=== PATIENT | male | born 1970 | race Caucasian/White ===

== ENCOUNTER 2018-07-20 01:24 | Emergency (ER) | payer SELFPAY ==
[~2018-07-20] VITALS: Ht 170.2 cm; Wt 104.3 kg
--- OUTSIDE RECORDS SUMMARY | 2018-07-20 01:32 | XMS REPORT ---
Author Author JUDY SHARPE Organization [facility] Address [address] [place] [address] Care Team Providers Care Logistics Loss Prevention Manager Name Role Phone JUDY SHARPE Unavailable PROBLEMS Type Condition ICD9-CM Code [id number] Code Onset Dates Condition Status SNOMED Code Problem Anxiety F41.9 Active 50597640 Problem Hypertriglyceridemia E78.1 Active 617057552 Problem Attention deficit hyperactivity disorder (ADHD), predominantly inattentive type F90.0 Active 72203739 Problem Gastroesophageal reflux disease without esophagitis K21.9 Active 706415760 ALLERGIES No Information ENCOUNTERS Encounter Location Date Diagnosis [place] [address] [address] May, Hypertriglyceridemia E78.1 [facility] [address] [place] [id number] [place] [address] 32512- 7992 Apr, Hypertriglyceridemia E78.1 [place] [address] [place] [id number] [place] [address] 97111- 2173 15 Mar, 2018 Hemangioma D18.00 [place] [address] [place] [id number] [place] [address] 99317- 9225 March, [facility] [address] [place] [address] [id number] [place] [address] 55711- 9212 March, Hypertriglyceridemia E78.1 [facility] [address] [place] [address] [id number] [place] [address] 95012- 6973 16 Feb, 2018 Insect bite (nonvenomous) of abdominal wall, initial encounter S30.861A and Hypertriglyceridemia E78.1 [facility] [address] [place] [address] 33887- 3703 Jan, Attention deficit hyperactivity disorder (ADHD), predominantly inattentive type F90.0 ; Anxiety F41.9 and Lipoma of breast D17.1 [facility] [address] [place] [id number] [place] [address] 19582 -6635 Jan, Encounter for immunization Z23 ; Superficial laceration of face S01.81XA and Injury of head, initial encounter S09.90XA [facility] [address] [address]- [address] Jan, Hypertriglyceridemia E78.1 [facility] [address] 98[address]- 2925 Dec, Hypertriglyceridemia E78.1 [place] [address] 55[address]- 2297 Dec, Hypertriglyceridemia E78.1 [facility] [address] 67[address]- 7[address] Nov, Hypertriglyceridemia E78.1 [facility] [address] 85[address]- 2735 Oct, Hypertriglyceridemia E78.1 [place] [address] 93[address]- 0430 Sep, Hypertriglyceridemia E78.1 [facility] [address] [place] [id number] [place] [address] 13972- 2196 Aug, Hypertriglyceridemia E78.1 and Elevated liver enzymes R74.8 [facility] [address] 26[address]- 8310 Aug, Attention deficit hyperactivity disorder (ADHD), predominantly inattentive type F90.0 [facility] [address] [place] [id number] [place] [address] 96690- 0674 Jul, [facility] [address] 07841- 9444 07 Jul, 2017 Insect bite (nonvenomous) of abdominal wall, initial encounter S30.861A ; Other fatigue R53.83 ; Other malaise R53.81 ; Family history of early CAD Z82.49 ; Gastroesophageal reflux disease without esophagitis K21.9 and Attention deficit hyperactivity disorder (ADHD), predominantly inattentive type F90.0 [facility] [address] [facility] [id number] [place] [id number] Jun, [facility] [address] [facility] [id number] [address] Nov, IMMUNIZATIONS No Known Immunizations SOCIAL HISTORY Never Assessed REASON FOR VISIT Controlled Med Refill PLAN OF CARE VITAL SIGNS MEDICATIONS Medication Instructions Dosage Frequency Start Date End Date Duration Status Adderall XR 30 MG Orally 2 times a day 1 capsule 12h 19 Jan, 2018 28 days Active Omeprazole 20 mg Orally Once a day 1 capsule 24h 30 days Active RESULTS No Results PROCEDURES No Known procedures INSTRUCTIONS MEDICATIONS ADMINISTERED No Known Medications MEDICAL (GENERAL) HISTORY Type Description Date Medical History Anxiety disorder Medical History ADHD Surgical History hernia repair, x2 abdominal and inquinal Surgical History skin graft on Left finger
--- OUTSIDE RECORDS SUMMARY | 2018-07-20 01:32 | XMS REPORT ---
Author Author JUAN ALBERTO ARRIOLA Organization [facility] Address [address] [place] [address] Care Team Providers Care Production Sanitizer Name Role Phone JUAN ALBERTO ARRIOLA Unavailable PROBLEMS Type Condition ICD9-CM Code [id number] Code Onset Dates Condition Status SNOMED Code Problem Anxiety F41.9 Active 41946632 Problem Hypertriglyceridemia E78.1 Active 959860629 Problem Attention deficit hyperactivity disorder (ADHD), predominantly inattentive type F90.0 Active 31424454 Problem Gastroesophageal reflux disease without esophagitis K21.9 Active 981560038 ALLERGIES No Information ENCOUNTERS Encounter Location Date Diagnosis [place] [address] [address] May, Hypertriglyceridemia E78.1 [place] [address] [address]- 3660 Apr, Hypertriglyceridemia E78.1 [place] [address] 77156- 7105 March, Hemangioma D18.00 [place] [address] 39946- 0595 March, [place] [address] 15829- 6291 March, Hypertriglyceridemia E78.1 [place] [address] 67146- 4590 16 Feb, 2018 Insect bite (nonvenomous) of abdominal wall, initial encounter S30.861A and Hypertriglyceridemia E78.1 [place] [address] [place] [id number] [place] [address] 43742- 6176 Jan, Attention deficit hyperactivity disorder (ADHD), predominantly inattentive type F90.0 ; Anxiety F41.9 and Lipoma of breast D17.1 [facility] [address] [place] [id number] [place] [address] 27749 -9446 Jan, Encounter for immunization Z23 ; Superficial laceration of face S01.81XA and Injury of head, initial encounter S09.90XA [facility] [address] 32691- 6133 Jan, Hypertriglyceridemia E78.1 [facility] [address] 41709- 1462 Dec, Hypertriglyceridemia E78.1 [place] [address] 03956- 2744 Dec, Hypertriglyceridemia E78.1 [facility] [address] [address]- 1849 Nov, Hypertriglyceridemia E78.1 [place] [address] 27221- 4635 Oct, Hypertriglyceridemia E78.1 [place] [address] 34424- 8113 Sep, Hypertriglyceridemia E78.1 [facility] [address] 28435- 7903 Aug, Hypertriglyceridemia E78.1 and Elevated liver enzymes R74.8 [place] [address] 52084- 8148 Aug, Attention deficit hyperactivity disorder (ADHD), predominantly inattentive type F90.0 [place] [address] 44725- 37[address] Jul, [place] [address] 44139- 98[address] 07 Jul, 2017 Insect bite (nonvenomous) of abdominal wall, initial encounter S30.861A ; Other fatigue R53.83 ; Other malaise R53.81 ; Family history of early CAD Z82.49 ; Gastroesophageal reflux disease without esophagitis K21.9 and Attention deficit hyperactivity disorder (ADHD), predominantly inattentive type F90.0 [facility] [address] [facility] [id number] [place] [address] Jun, [facility] [address] [facility] [id number] [place] [address]- 4046 Nov, IMMUNIZATIONS No Known Immunizations SOCIAL HISTORY Never Assessed REASON FOR VISIT Controlled Med Refill PLAN OF CARE VITAL SIGNS MEDICATIONS Medication Instructions Dosage Frequency Start Date End Date Duration Status Adderall XR 30 MG Orally 2 times a day 1 capsule 12h 16 Feb, 2018 28 days Active Omeprazole 20 mg Orally Once a day 1 capsule 24h 07 Jul, 2017 30 day(s ) Active RESULTS No Results PROCEDURES No Known procedures INSTRUCTIONS MEDICATIONS ADMINISTERED No Known Medications MEDICAL (GENERAL) HISTORY Type Description Date Medical History Anxiety disorder Medical History ADHD Surgical History hernia repair, x2 abdominal and inquinal Surgical History skin graft on Left finger
--- OUTSIDE RECORDS SUMMARY | 2018-07-20 01:32 | XMS REPORT ---
Author Author JUAN ALBERTO ARRIOLA Organization [facility] Address [address] [place] [address] Care Team Providers Care Zoo Keeper Name Role Phone JUAN ALBERTO ARRIOLA Unavailable PROBLEMS Type Condition ICD9-CM Code DPP76-SI Code Onset Dates Condition Status SNOMED Code Problem Anxiety F41.9 Active 07323533 Problem Hypertriglyceridemia E78.1 Active 786988388 Problem Attention deficit hyperactivity disorder (ADHD), predominantly inattentive type F90.0 Active 12309197 Problem Gastroesophageal reflux disease without esophagitis K21.9 Active 984877770 ALLERGIES No Known Allergies ENCOUNTERS Encounter Location Date Diagnosis [place] [address] [address] May, Hypertriglyceridemia E78.1 [place] [address] [place] [id number] [place] [address] 34977- 0176 Apr, Hypertriglyceridemia E78.1 [place] [address] [place] [id number] [place] [address] 08534- 9513 March, Hemangioma D18.00 [place] [address] [place] [id number] [place] [address] 05361- 1818 March, [place] [address] [place] [id number] [place] [address] 02550- 6319 March, Hypertriglyceridemia E78.1 [place] [address] [place] [id number] [place] [address] 74065- 8299 Feb, Insect bite (nonvenomous) of abdominal wall, initial encounter S30.861A and Hypertriglyceridemia E78.1 [facility] [address] [place] [id number] [place] [address] 46544- 3574 Jan, Attention deficit hyperactivity disorder (ADHD), predominantly inattentive type F90.0 ; Anxiety F41.9 and Lipoma of breast D17.1 [facility] [address] [place] [id number] [place] [address] 29470 -3713 Jan, Encounter for immunization Z23 ; Superficial laceration of face S01.81XA and Injury of head, initial encounter S09.90XA [facility] [address] [address]- 92[address] Jan, Hypertriglyceridemia E78.1 [facility] [address] 26928- 6158 Dec, Hypertriglyceridemia E78.1 [place] [address] 59840- 0493 Dec, Hypertriglyceridemia E78.1 [facility] [address] 59255- 7633 Nov, Hypertriglyceridemia E78.1 [facility] [address] 44386- 8499 Oct, Hypertriglyceridemia E78.1 [place] [address] 51249- 0980 Sep, Hypertriglyceridemia E78.1 [facility] [address] [address]08- 7314 Aug, Hypertriglyceridemia E78.1 and Elevated liver enzymes R74.8 [place] [address] 52159- 4742 Aug, Attention deficit hyperactivity disorder (ADHD), predominantly inattentive type F90.0 [place] [address] 12004- 7019 Jul, [place] [address] 59414- 0261 07 Jul, 2017 Insect bite (nonvenomous) of abdominal wall, initial encounter S30.861A ; Other fatigue R53.83 ; Other malaise R53.81 ; Family history of early CAD Z82.49 ; Gastroesophageal reflux disease without esophagitis K21.9 and Attention deficit hyperactivity disorder (ADHD), predominantly inattentive type F90.0 [facility] [address] [facility] [id number] [place] [address]- [address] Jun, [facility] [address] [facility] [id number] [place] [address]- 7827 Nov, IMMUNIZATIONS No Known Immunizations SOCIAL HISTORY Never Assessed REASON FOR VISIT [facility] [place], contract and PDM collected PLAN OF CARE Activity Details Follow Up 4 Weeks Reason:mood disorder VITAL SIGNS Height 67 in 2018-02-16 Weight 258 lbs 2018-02-16 Temperature 97.7 degrees Fahrenheit 2018-02-16 Heart Rate 78 bpm 2018-02-16 Respiratory Rate 20 2018-02-16 BMI 40.40 kg/m2 2018-02-16 Blood pressure systolic 152 mmHg 2018-02-16 Blood pressure diastolic 84 mmHg 2018-02-16 MEDICATIONS Medication Instructions Dosage Frequency Start Date End Date Duration Status Adderall XR 30 MG Orally 2 times a day 1 capsule 12h 19 Jan, 2018 28 days Active Omeprazole 20 mg Orally Once a day 1 capsule 24h 07 Jul, 2017 30 day(s ) Active Wellbutrin SR 150 MG Orally Twice a day 1 tablet 12h Jan, 30 day(s) Active RESULTS No Results PROCEDURES Procedure Date Ordered Result Body Site DRUG SCREEN AMPHETAMINES 11/21February 16, 2018 DRUG TEST PRSMV CHEM ANLYZR February 16, 2018 INSTRUCTIONS MEDICATIONS ADMINISTERED No Known Medications MEDICAL (GENERAL) HISTORY Type Description Date Medical History Anxiety disorder Medical History ADHD Surgical History hernia repair, x2 abdominal and inquinal Surgical History skin graft on Left finger
--- OUTSIDE RECORDS SUMMARY | 2018-07-20 01:32 | XMS REPORT ---
Author Author JUAN ALBERTO ARRIOLA Organization [facility] Address [address] [place] [address] Care Team Providers Care Condenser Cleaner Name Role Phone JUAN ALBERTO ARRIOLA Unavailable PROBLEMS Type Condition ICD9-CM Code [id number] Code Onset Dates Condition Status SNOMED Code Problem Anxiety F41.9 Active 78394922 Problem Hypertriglyceridemia E78.1 Active 614799817 Problem Attention deficit hyperactivity disorder (ADHD), predominantly inattentive type F90.0 Active 25082821 Problem Gastroesophageal reflux disease without esophagitis K21.9 Active 785466113 ALLERGIES No Information ENCOUNTERS Encounter Location Date Diagnosis [place] [address] [place] [id number] [place] [address] 17546- 8568 Jun, [facility] [address] [address]- [address] Jun, Hypertriglyceridemia E78.1 and Insect bite (nonvenomous) of abdominal wall, initial encounter S30.861A [place] [address] [place] [id number] [place] [address] 46864- 0637 May, Hypertriglyceridemia E78.1 [place] [address] [place] [id number] [place] [address] 87528- 6805 Apr, Hypertriglyceridemia E78.1 [facility] [address] [place] [id number] [place] [address] 80707- 2729 March, Hemangioma D18.00 [place] [address] 93209- 7523 March, [facility] [address] [place] [id number] [place] [address] 08445- 4541 March, Hypertriglyceridemia E78.1 [facility] [address] [place] [id number] [place] [address] 94892- 4981 Feb, Insect bite (nonvenomous) of abdominal wall, initial encounter S30.861A and Hypertriglyceridemia E78.1 [facility] [address] [place] [id number] [place] [address] 07045- 7339 Jan, Attention deficit hyperactivity disorder (ADHD), predominantly inattentive type F90.0 ; Anxiety F41.9 and Lipoma of breast D17.1 [facility] [address] [place] [id number] [place] [address] 42038 -9016 Jan, Encounter for immunization Z23 ; Superficial laceration of face S01.81XA and Injury of head, initial encounter S09.90XA [facility] [address] [place] [id number] [place] [address] 92545- 5463 Jan, Hypertriglyceridemia E78.1 [facility] [address] [place] [id number] [place] [address] 92325- 5668 Dec, Hypertriglyceridemia E78.1 [facility] [address] [place] [id number] [place] [address] 44102- 4573 Dec, Hypertriglyceridemia E78.1 [facility] [address] 10263- 3873 Nov, Hypertriglyceridemia E78.1 [facility] [address] [place] [id number] [place] [address] 31446- 4378 Oct, Hypertriglyceridemia E78.1 [facility] [address] 36719- 7419 Sep, Hypertriglyceridemia E78.1 [facility] [address] [place] [id number] [place] [address] 81139- 5721 Aug, Hypertriglyceridemia E78.1 and Elevated liver enzymes R74.8 [facility] [address] [place] [id number] [place] [address] 42073- 2865 04 Aug, 2017 Attention deficit hyperactivity disorder (ADHD), predominantly inattentive type F90.0 [place] [address] [place] [address]- 8556 Jul, [place] [address] [place] [id number] [place] [address] 93145- 1569 Jul, Insect bite (nonvenomous) of abdominal wall, initial encounter S30.861A ; Other fatigue R53.83 ; Other malaise R53.81 ; Family history of early CAD Z82.49 ; Gastroesophageal reflux disease without esophagitis K21.9 and Attention deficit hyperactivity disorder (ADHD), predominantly inattentive type F90.0 [place] [address] [place] [address] 96208- 7239 Jun, [place] [address] [place] [address] [id number]- 3599 Nov, IMMUNIZATIONS No Known Immunizations SOCIAL HISTORY Never Assessed REASON FOR VISIT Controlled Med Refill PLAN OF CARE VITAL SIGNS MEDICATIONS Medication Instructions Dosage Frequency Start Date End Date Duration Status Adderall XR 30 MG Orally 2 times a day 1 capsule 12h Apr, 28 days Active RESULTS No Results PROCEDURES No Known procedures INSTRUCTIONS MEDICATIONS ADMINISTERED No Known Medications MEDICAL (GENERAL) HISTORY Type Description Date Medical History Anxiety disorder Medical History ADHD Surgical History hernia repair, x2 abdominal and inquinal Surgical History skin graft on Left finger
--- OUTSIDE RECORDS SUMMARY | 2018-07-20 01:32 | XMS REPORT ---
Author Author JUAN ALBERTO ARRIOLA Organization [facility] Address [address] [place] [address] Care Team Providers Care Partnership Development Manager Name Role Phone JUAN ALBERTO ARRIOLA Unavailable PROBLEMS Type Condition ICD9-CM Code [id number] Code Onset Dates Condition Status SNOMED Code Problem Anxiety F41.9 Active 80467283 Problem Hypertriglyceridemia E78.1 Active 913401565 Problem Attention deficit hyperactivity disorder (ADHD), predominantly inattentive type F90.0 Active 02279190 Problem Gastroesophageal reflux disease without esophagitis K21.9 Active 970609315 ALLERGIES No Known Allergies ENCOUNTERS Encounter Location Date Diagnosis [place] [address] [place] [id number] [place] [address] 35529- 1739 Jun, [facility] [address] [place] [id number] [place] [address] 21636- 9987 Jun, Hypertriglyceridemia E78.1 and Insect bite (nonvenomous) of abdominal wall, initial encounter S30.861A [place] [address] [place] [id number] [place] [address] 66451- 5168 May, Hypertriglyceridemia E78.1 [place] [address] [place] [id number] [place] [address] 41646- 0096 Apr, Hypertriglyceridemia E78.1 [place] [address] [place] [id number] [place] [address] 98539- 4658 March, Hemangioma D18.00 [place] [address] 38[address]- 38[address] March, [place] [address] [place] [id number] [place] [address] 25623- 4838 March, Hypertriglyceridemia E78.1 [place] [address] [place] [id number] [place] [address] 27291- 2203 Feb, Insect bite (nonvenomous) of abdominal wall, initial encounter S30.861A and Hypertriglyceridemia E78.1 [facility] [address] [place] [id number] [place] [address] 65671- 5096 Jan, Attention deficit hyperactivity disorder (ADHD), predominantly inattentive type F90.0 ; Anxiety F41.9 and Lipoma of breast D17.1 [facility] [address] [address] -[address] Jan, Encounter for immunization Z23 ; Superficial laceration of face S01.81XA and Injury of head, initial encounter S09.90XA [facility] [address] [place] [id number] [place] [address] 79435- 4145 Jan, Hypertriglyceridemia E78.1 [facility] [address] [place] [id number] [place] [address] 81297- 4656 Dec, Hypertriglyceridemia E78.1 [facility] [address] [place] [id number] [place] [address] 89808- 6267 Dec, Hypertriglyceridemia E78.1 [facility] [address] 95123- 9941 Nov, Hypertriglyceridemia E78.1 [facility] [address] [place] [id number] [place] [address] 34961- 2755 Oct, Hypertriglyceridemia E78.1 [facility] [address] [place] [id number] [place] [address] 81538- 0267 Sep, Hypertriglyceridemia E78.1 [facility] [address] [place] [id number] [place] [address] 55962- 9828 Aug, Hypertriglyceridemia E78.1 and Elevated liver enzymes R74.8 [facility] [address] [place] [id number] [place] [address] 75013- 1314 04 Aug, 2017 Attention deficit hyperactivity disorder (ADHD), predominantly inattentive type F90.0 [place] [address] [place] [address] 12 Jul, 2017 [facility] [address] [id number] [address]- 8966 07 Jul, 2017 Insect bite (nonvenomous) of abdominal wall, initial encounter S30.861A ; Other fatigue R53.83 ; Other malaise R53.81 ; Family history of early CAD Z82.49 ; Gastroesophageal reflux disease without esophagitis K21.9 and Attention deficit hyperactivity disorder (ADHD), predominantly inattentive type F90.0 [place] [address] [id number] [address]- 0700 Jun, [place] [address] [place] [address] 41309- 9782 Nov, IMMUNIZATIONS No Known Immunizations SOCIAL HISTORY Never Assessed REASON FOR VISIT Lipoma removal WB-MA PLAN OF CARE Activity Details Follow Up 10 days, Reason:suture removal Future/Pending Procedure BIOPSY SKIN LESION (SINGLE) VITAL SIGNS Height 67 in 2018-04-03 Weight 249 lbs 2018-04-03 Temperature 98.2 degrees Fahrenheit 2018-04-03 Heart Rate 96 bpm 2018-04-03 Respiratory Rate 20 2018-04-03 BMI 38.99 kg/m2 2018-04-03 Blood pressure systolic 126 mmHg 2018-04-03 Blood pressure diastolic 84 mmHg 2018-04-03 MEDICATIONS Medication Instructions Dosage Frequency Start Date End Date Duration Status Adderall XR 30 MG Orally 2 times a day 1 capsule 12h March, 28 days Active Wellbutrin SR 150 MG Orally Twice a day 1 tablet 12h 30 Jan, 2018 30 day(s) Active Omeprazole 20 mg Orally Once a day 1 capsule 24h 07 Jul, 2017 30 day(s ) Active RESULTS Name Result Date Reference Range PATHOLOGY REPORT (TISSUE PATHOLOGY) 2018-04-03 CLINICAL INFORMATION PATHOLOGIST TISSUE, SPECIMEN A 2018-04-03 A SOURCE A GROSS DESCRIPTION A DIAGNOSIS PROCEDURES Procedure Date Ordered Result Body Site BIOPSY OF SKIN LESION April 03, 2018 INSTRUCTIONS MEDICATIONS ADMINISTERED No Known Medications MEDICAL (GENERAL) HISTORY Type Description Date Medical History Anxiety disorder Medical History ADHD Surgical History hernia repair, x2 abdominal and inquinal Surgical History skin graft on Left finger
--- OUTSIDE RECORDS SUMMARY | 2018-07-20 01:32 | XMS REPORT ---
Author Author JUAN ALBERTO ARRIOLA Organization [facility] Address [address] [place] [address] Care Team Providers Care Form Tamper Operator Name Role Phone JUAN ALBERTO ARRIOLA Unavailable PROBLEMS Type Condition ICD9-CM Code [id number] Code Onset Dates Condition Status SNOMED Code Problem Anxiety F41.9 Active 49663233 Problem Hypertriglyceridemia E78.1 Active 941694399 Problem Attention deficit hyperactivity disorder (ADHD), predominantly inattentive type F90.0 Active 19477854 Problem Gastroesophageal reflux disease without esophagitis K21.9 Active 562234668 ALLERGIES No Information ENCOUNTERS Encounter Location Date Diagnosis [place] [address] [address] Apr, Hypertriglyceridemia E78.1 [facility] [address] [address] 15 Mar, 2018 Hemangioma D18.00 [facility] [address] [address] March, [facility] [address] [place] [id number] [place] [address] 4[address] March, Hypertriglyceridemia E78.1 [facility] [address] [address] Feb, Insect bite (nonvenomous) of abdominal wall, initial encounter S30.861A and Hypertriglyceridemia E78.1 [facility] [address] [address] Jan, Attention deficit hyperactivity disorder (ADHD), predominantly inattentive type F90.0 ; Anxiety F41.9 and Lipoma of breast D17.1 [facility] [address] [address] Jan, Encounter for immunization Z23 ; Superficial laceration of face S01.81XA and Injury of head, initial encounter S09.90XA [place] [address] [address] Jan, Hypertriglyceridemia E78.1 [place] [address] [address] Dec, Hypertriglyceridemia E78.1 [place] [address] [address] Dec, Hypertriglyceridemia E78.1 [place] [address] [address] Nov, Hypertriglyceridemia E78.1 [place] [address] [address] 4[address] Oct, Hypertriglyceridemia E78.1 [place] [address] [address] 8[address] Sep, Hypertriglyceridemia E78.1 [place] [address] [address] 6[address] Aug, Hypertriglyceridemia E78.1 and Elevated liver enzymes R74.[address] [address] 04 Aug, 2017 Attention deficit hyperactivity disorder (ADHD), predominantly inattentive type F90.0 [place] [address] [address] 12 Jul, 2017 [place] [address] [address] 07 Jul, 2017 Insect bite (nonvenomous) of abdominal wall, initial encounter S30.861A ; Other fatigue R53.83 ; Other malaise R53.81 ; Family history of early CAD Z82.49 ; Gastroesophageal reflux disease without esophagitis K21.9 and Attention deficit hyperactivity disorder (ADHD), predominantly inattentive type F90.0 [place] [address] [facility] [id number] [place] [address] Jun, [facility] [address] [facility] [id number] [address] Nov, IMMUNIZATIONS No Known Immunizations SOCIAL HISTORY Never Assessed REASON FOR VISIT Controlled Med Refill 01/08/18 PLAN OF CARE VITAL SIGNS MEDICATIONS Medication Instructions Dosage Frequency Start Date End Date Duration Status Adderall XR 30 MG Orally 2 times a day 1 capsule 12h Dec, 28 days Active RESULTS No Results PROCEDURES No Known procedures INSTRUCTIONS MEDICATIONS ADMINISTERED No Known Medications MEDICAL (GENERAL) HISTORY Type Description Date Medical History Anxiety disorder Medical History ADHD Surgical History hernia repair, x2 abdominal and inquinal Surgical History skin graft on Left finger
--- OUTSIDE RECORDS SUMMARY | 2018-07-20 01:32 | XMS REPORT ---
Author Author ABDIAS WATSON [facility] Address [address] [place] [address] Care Team Providers Care Feller Buncher Operator Name Role Phone ABDIAS WATSON Unavailable PROBLEMS Type Condition ICD9-CM Code HYK36-DZ Code Onset Dates Condition Status SNOMED Code Problem Anxiety F41.9 Active 01359912 Problem Hypertriglyceridemia E78.1 Active 823716145 Problem Attention deficit hyperactivity disorder (ADHD), predominantly inattentive type F90.0 Active 63462800 Problem Gastroesophageal reflux disease without esophagitis K21.9 Active 893629646 ALLERGIES No Known Allergies ENCOUNTERS Encounter Location Date Diagnosis [place] [address] [address] May, Hypertriglyceridemia E78.1 [place] [address] [place] [id number] [place] [address] Apr, Hypertriglyceridemia E78.1 [place] [address] [place] [id number] [place] [address]- [address] 15 Mar, 2018 Hemangioma D18.00 [place] [address] [place] [id number] [place] [address]- 6[address] March, [place] [address] [place] [id number] [place] [address] 92296- 9226 March, Hypertriglyceridemia E78.1 [place] [address] [address] 16 Feb, 2018 Insect bite (nonvenomous) of abdominal wall, initial encounter S30.861A and Hypertriglyceridemia E78.1 [place] [address] [place] [id number] [place] [address]- 29[address] Jan, Attention deficit hyperactivity disorder (ADHD), predominantly inattentive type F90.0 ; Anxiety F41.9 and Lipoma of breast D17.1 [facility] [address] [address] Jan, Encounter for immunization Z23 ; Superficial laceration of face S01.81XA and Injury of head, initial encounter S09.90XA [facility] [address] [address] Jan, Hypertriglyceridemia E78.1 [facility] [address] [address]- [address] Dec, Hypertriglyceridemia E78.1 [facility] [address] [address]- 80[address] Dec, Hypertriglyceridemia E78.1 [facility] [address] [address]- 3[address] Nov, Hypertriglyceridemia E78.1 [facility] [address] [address] Oct, Hypertriglyceridemia E78.1 [facility] [address] [address]- 7[address] Sep, Hypertriglyceridemia E78.1 [facility] [address] [address] Aug, Hypertriglyceridemia E78.1 and Elevated liver enzymes R74.8 [facility] [address] [address] Aug, Attention deficit hyperactivity disorder (ADHD), predominantly inattentive type F90.0 [facility] [address] [address]- [address] Jul, [facility] [address] [address]- [address] 07 Jul, 2017 Insect bite (nonvenomous) of abdominal wall, initial encounter S30.861A ; Other fatigue R53.83 ; Other malaise R53.81 ; Family history of early CAD Z82.49 ; Gastroesophageal reflux disease without esophagitis K21.9 and Attention deficit hyperactivity disorder (ADHD), predominantly inattentive type F90.0 [facility] [address] [facility] [id number] [place] [address] Jun, [facility] [address] [facility] [id number] [place] [address] Nov, IMMUNIZATIONS Vaccine Route Administration Date Status TDAP (BOOSTRIX) IM Intramuscular February 07, 2018 Administered SOCIAL HISTORY Never Assessed REASON FOR VISIT cut on forehead by 2x4 about 15 minutes ago JStrasserRN PLAN OF CARE Activity Details Follow Up prn Reason: VITAL SIGNS Height 67 in 2018-02-07 Weight 250.2 lbs 2018-02-07 Temperature 97.4 degrees Fahrenheit 2018-02-07 Heart Rate 80 bpm 2018-02-07 Respiratory Rate 20 2018-02-07 BMI 39.18 kg/m2 2018-02-07 Blood pressure systolic 138 mmHg 2018-02-07 Blood pressure diastolic 90 mmHg 2018-02-07 MEDICATIONS Medication Instructions Dosage Frequency Start Date End Date Duration Status Adderall XR 30 MG Orally 2 times a day 1 capsule 12h Jan, 28 days Active Omeprazole 20 mg Orally Once a day 1 capsule 24h 30 days Active Omeprazole 20 mg Orally Once a day 1 capsule 24h 07 Jul, 2017 30 day(s ) Active RESULTS No Results PROCEDURES Procedure Date Ordered Result Body Site TDAP (BOOSTRIX) February 07, 2018 SINGLE IMMUNIZATION ADMIN February 07, 2018 INSTRUCTIONS MEDICATIONS ADMINISTERED No Known Medications MEDICAL (GENERAL) HISTORY Type Description Date Medical History Anxiety disorder Medical History ADHD Surgical History hernia repair, x2 abdominal and inquinal Surgical History skin graft on Left finger
--- OUTSIDE RECORDS SUMMARY | 2018-07-20 01:32 | XMS REPORT ---
Author Author JUAN ALBERTO ARRIOLA Organization [facility] Address [address] [place] [address] Care Team Providers Care Multiple Drum Sander Helper Name Role Phone JUAN ALBERTO ARRIOLA Unavailable PROBLEMS Type Condition ICD9-CM Code EQZ43-TF Code Onset Dates Condition Status SNOMED Code Problem Anxiety F41.9 Active 36203060 Problem Hypertriglyceridemia E78.1 Active 709303662 Problem Attention deficit hyperactivity disorder (ADHD), predominantly inattentive type F90.0 Active 57400568 Problem Gastroesophageal reflux disease without esophagitis K21.9 Active 131301717 ALLERGIES No Information ENCOUNTERS Encounter Location Date Diagnosis [place] [address] [place] [id number] [place] [address] Jun, [facility] [address] [address] Jun, Hypertriglyceridemia E78.1 and Insect bite (nonvenomous) of abdominal wall, initial encounter S30.861A [place] [address] [place] [id number] [place] [address]- 9757 May, Hypertriglyceridemia E78.1 [place] [address] [place] [id number] [place] [address]- 68[address] Apr, Hypertriglyceridemia E78.1 [facility] [address] [place] [id number] [place] [address] 11244- 2256 March, Hemangioma D18.00 [place] [address] [address]- [address] March, [facility] [address] [place] [id number] [place] [address] 18[address]- 0534 March, Hypertriglyceridemia E78.1 [facility] [address] [place] [id number] [place] [address] 9[address]40- 3301 Feb, Insect bite (nonvenomous) of abdominal wall, initial encounter S30.861A and Hypertriglyceridemia E78.1 [facility] [address] [place] [id number] [place] [address] 37771- 1691 Jan, Attention deficit hyperactivity disorder (ADHD), predominantly inattentive type F90.0 ; Anxiety F41.9 and Lipoma of breast D17.1 [facility] [address] [place] [id number] [place] [address] -[address]116 Jan, Encounter for immunization Z23 ; Superficial laceration of face S01.81XA and Injury of head, initial encounter S09.90XA [facility] [address] [place] [id number] [place] [address] 95345- 2863 Jan, Hypertriglyceridemia E78.1 [facility] [address] [place] [id number] [place] [address] 82502- 3566 Dec, Hypertriglyceridemia E78.1 [facility] [address] [place] [id number] [place] [address] 20218- 1924 Dec, Hypertriglyceridemia E78.1 [facility] [address] [address]- 7457 Nov, Hypertriglyceridemia E78.1 [facility] [address] [place] [id number] [place] [address] 63028- 8890 Oct, Hypertriglyceridemia E78.1 [facility] [address] [address]- 5953 Sep, Hypertriglyceridemia E78.1 [facility] [address] [place] [id number] [place] [address]91- 6920 Aug, Hypertriglyceridemia E78.1 and Elevated liver enzymes R74.8 [facility] [address] [place] [id number] [place] [address] 15740- 9341 04 Aug, 2017 Attention deficit hyperactivity disorder (ADHD), predominantly inattentive type F90.0 [place] [address] [id number] Jul, [place] [address] [place] [id number] [place] [address] 40385- 6773 Jul, Insect bite (nonvenomous) of abdominal wall, initial encounter S30.861A ; Other fatigue R53.83 ; Other malaise R53.81 ; Family history of early CAD Z82.49 ; Gastroesophageal reflux disease without esophagitis K21.9 and Attention deficit hyperactivity disorder (ADHD), predominantly inattentive type F90.0 [place] [address] [place] [address] 57452- 7524 Jun, [place] [address] [place] [id number] [place] [address] 46292- 7200 Nov, IMMUNIZATIONS No Known Immunizations SOCIAL HISTORY Never Assessed REASON FOR VISIT Duplicate refill request PLAN OF CARE VITAL SIGNS MEDICATIONS Unknown Medications RESULTS No Results PROCEDURES No Known procedures INSTRUCTIONS MEDICATIONS ADMINISTERED No Known Medications MEDICAL (GENERAL) HISTORY Type Description Date Medical History Anxiety disorder Medical History ADHD Surgical History hernia repair, x2 abdominal and inquinal Surgical History skin graft on Left finger
--- OUTSIDE RECORDS SUMMARY | 2018-07-20 01:32 | XMS REPORT ---
Author Author JUAN ALBERTO ARRIOLA Organization [facility] Address [address] [place] [address] Care Team Providers Care Assistant Teaching Professor Name Role Phone JUAN ALBERTO ARRIOLA Unavailable PROBLEMS Type Condition ICD9-CM Code OJU14-VK Code Onset Dates Condition Status SNOMED Code Problem Anxiety F41.9 Active 38471601 Problem Hypertriglyceridemia E78.1 Active 153088957 Problem Attention deficit hyperactivity disorder (ADHD), predominantly inattentive type F90.0 Active 23175039 Problem Gastroesophageal reflux disease without esophagitis K21.9 Active 593770511 ALLERGIES No Information ENCOUNTERS Encounter Location Date Diagnosis [place] [address] [place] [id number] [place] [address]- [address]20 Jun, [facility] [address] [address] Jun, Hypertriglyceridemia E78.1 and Insect bite (nonvenomous) of abdominal wall, initial encounter S30.861A [place] [address] [place] [id number] [place] [address] 38788- 0672 May, Hypertriglyceridemia E78.1 [place] [address] [place] [id number] [place] [address] 46683- 6108 Apr, Hypertriglyceridemia E78.1 [facility] [address] [place] [id number] [place] [address] 16606- 4291 March, Hemangioma D18.00 [place] [address] 20[address]- 0530 March, [facility] [address] [place] [id number] [place] [address] 92310- 4237 March, Hypertriglyceridemia E78.1 [facility] [address] [place] [id number] [place] [address] 86056- 4910 Feb, Insect bite (nonvenomous) of abdominal wall, initial encounter S30.861A and Hypertriglyceridemia E78.1 [facility] [address] [place] [id number] [place] [address] 59594- 1940 Jan, Attention deficit hyperactivity disorder (ADHD), predominantly inattentive type F90.0 ; Anxiety F41.9 and Lipoma of breast D17.1 [facility] [address] [place] [id number] [place] [address]34 -[address]69 Jan, Encounter for immunization Z23 ; Superficial laceration of face S01.81XA and Injury of head, initial encounter S09.90XA [facility] [address] [place] [id number] [place] [address] 35808- 0939 Jan, Hypertriglyceridemia E78.1 [facility] [address] [place] [id number] [place] [address] 41095- 0877 Dec, Hypertriglyceridemia E78.1 [facility] [address] [place] [id number] [place] [address] 91961- 3152 Dec, Hypertriglyceridemia E78.1 [facility] [address] 49321- 4247 Nov, Hypertriglyceridemia E78.1 [facility] [address] [place] [id number] [place] [address] 10456- 8833 Oct, Hypertriglyceridemia E78.1 [facility] [address] 34[address]- 7188 Sep, Hypertriglyceridemia E78.1 [facility] [address] [place] [id number] [place] [address] 29375- 1069 Aug, Hypertriglyceridemia E78.1 and Elevated liver enzymes R74.8 [facility] [address] [place] [id number] [place] [address] 55981- 9271 04 Aug, 2017 Attention deficit hyperactivity disorder (ADHD), predominantly inattentive type F90.0 [place] [address] [place] [address]- 2177 Jul, [place] [address] [place] [id number] [place] [address] 59810- 5568 Jul, Insect bite (nonvenomous) of abdominal wall, initial encounter S30.861A ; Other fatigue R53.83 ; Other malaise R53.81 ; Family history of early CAD Z82.49 ; Gastroesophageal reflux disease without esophagitis K21.9 and Attention deficit hyperactivity disorder (ADHD), predominantly inattentive type F90.0 [place] [address] [place] [address] 767165- 5909 Jun, [place] [address] [place] [address] 51444193- 9512 Nov, IMMUNIZATIONS No Known Immunizations SOCIAL HISTORY Never Assessed REASON FOR VISIT Controlled Med Refill 04/02/18 PLAN OF CARE VITAL SIGNS MEDICATIONS Medication Instructions Dosage Frequency Start Date End Date Duration Status Adderall XR 30 MG Orally 2 times a day 1 capsule 12h March, 28 days Active RESULTS No Results PROCEDURES No Known procedures INSTRUCTIONS MEDICATIONS ADMINISTERED No Known Medications MEDICAL (GENERAL) HISTORY Type Description Date Medical History Anxiety disorder Medical History ADHD Surgical History hernia repair, x2 abdominal and inquinal Surgical History skin graft on Left finger
--- OUTSIDE RECORDS SUMMARY | 2018-07-20 01:33 | XMS REPORT ---
Author Author JUAN ALBERTO ARRIOLA Organization [facility] Address [address] [place] [address] Care Team Providers Care Director Of Capital Giving Name Role Phone JUAN ALBERTO ARRIOLA Unavailable PROBLEMS Type Condition ICD9-CM Code GOU11-TE Code Onset Dates Condition Status SNOMED Code Problem Anxiety F41.9 Active 64946675 Problem Hypertriglyceridemia E78.1 Active 629679467 Problem Attention deficit hyperactivity disorder (ADHD), predominantly inattentive type F90.0 Active 02172575 Problem Gastroesophageal reflux disease without esophagitis K21.9 Active 025118048 ALLERGIES No Information ENCOUNTERS Encounter Location Date Diagnosis [place] [address] [address] Apr, Hypertriglyceridemia E78.1 [facility] [address] [address]- [address] 15 Mar, 2018 Hemangioma D18.00 [facility] [address] 6[address]- 6024 March, [facility] [address] [place] [id number] [place] [address] 92376- 5565 March, Hypertriglyceridemia E78.1 [facility] [address] 6[address]- 0612 Feb, Insect bite (nonvenomous) of abdominal wall, initial encounter S30.861A and Hypertriglyceridemia E78.1 [facility] [address] 53591- 7408 Jan, Attention deficit hyperactivity disorder (ADHD), predominantly inattentive type F90.0 ; Anxiety F41.9 and Lipoma of breast D17.1 [facility] [address] [address] Jan, Encounter for immunization Z23 ; Superficial laceration of face S01.81XA and Injury of head, initial encounter S09.90XA [place] [address] [address]- 6965 Jan, Hypertriglyceridemia E78.1 [place] [address] 93958- 5087 Dec, Hypertriglyceridemia E78.1 [place] [address] 24446- 1368 Dec, Hypertriglyceridemia E78.1 [place] [address] 31651- 3508 Nov, Hypertriglyceridemia E78.1 [place] [address] 18931- 8092 Oct, Hypertriglyceridemia E78.1 [place] [address] 49911- 4165 Sep, Hypertriglyceridemia E78.1 [place] [address] 02442- 9920 Aug, Hypertriglyceridemia E78.1 and Elevated liver enzymes R74.[address] [address]- 118[address] 04 Aug, 2017 Attention deficit hyperactivity disorder (ADHD), predominantly inattentive type F90.0 [place] [address] 53[address]- 8965 12 Jul, 2017 [place] [address] 72071- 9098 07 Jul, 2017 Insect bite (nonvenomous) of abdominal wall, initial encounter S30.861A ; Other fatigue R53.83 ; Other malaise R53.81 ; Family history of early CAD Z82.49 ; Gastroesophageal reflux disease without esophagitis K21.9 and Attention deficit hyperactivity disorder (ADHD), predominantly inattentive type F90.0 [place] [address] [facility] [id number] [place] [address]- [address] Jun, [facility] [address] [facility] [id number] [address] Nov, IMMUNIZATIONS No Known Immunizations SOCIAL HISTORY Never Assessed REASON FOR VISIT Controlled/Refill Request PLAN OF CARE VITAL SIGNS MEDICATIONS Medication Instructions Dosage Frequency Start Date End Date Duration Status Omeprazole 20 MG Orally Once a day 1 capsule 24h 30 days Active Adderall XR 30 MG Orally 2 times a day 1 capsule 12h Nov, 28 days Active RESULTS No Results PROCEDURES No Known procedures INSTRUCTIONS MEDICATIONS ADMINISTERED No Known Medications MEDICAL (GENERAL) HISTORY Type Description Date Medical History Anxiety disorder Medical History ADHD Surgical History hernia repair, x2 abdominal and inquinal Surgical History skin graft on Left finger
--- OUTSIDE RECORDS SUMMARY | 2018-07-20 01:33 | XMS REPORT ---
Author Author JUAN ALBERTO ARRIOLA Organization [facility] Address [address] [place] [address] Care Team Providers Care Baby Formula Worker Name Role Phone JUAN ALBERTO ARRIOLA Unavailable PROBLEMS Type Condition ICD9-CM Code CVA01-RB Code Onset Dates Condition Status SNOMED Code Problem Anxiety F41.9 Active 40820181 Problem Hypertriglyceridemia E78.1 Active 402787587 Problem Attention deficit hyperactivity disorder (ADHD), predominantly inattentive type F90.0 Active 81466029 Problem Gastroesophageal reflux disease without esophagitis K21.9 Active 889420854 ALLERGIES No Information ENCOUNTERS Encounter Location Date Diagnosis [place] [address] [address] March, Hemangioma D18.00 [facility] [address] [address] March, [place] [address] [address] 10 Mar, 2018 Hypertriglyceridemia E78.1 [place] [address] [address] 16 Feb, 2018 Insect bite (nonvenomous) of abdominal wall, initial encounter S30.861A and Hypertriglyceridemia E78.1 [facility] [address] [address] 30 Jan, 2018 Attention deficit hyperactivity disorder (ADHD), predominantly inattentive type F90.0 ; Anxiety F41.9 and Lipoma of breast D17.1 [facility] [address] [address] Jan, Encounter for immunization Z23 ; Superficial laceration of face S01.81XA and Injury of head, initial encounter S09.90XA [place] [address] [place] [id number] [place] [address] 42011- 7908 Jan, Hypertriglyceridemia E78.1 [facility] [address] [place] [id number] [place] [address] 29256- 5664 Dec, Hypertriglyceridemia E78.1 [facility] [address] [place] [id number] [place] [address] 89679- 8543 Dec, Hypertriglyceridemia E78.1 [facility] [address] [address]- [address] Nov, Hypertriglyceridemia E78.1 [facility] [address] [address]43- 46[address] Oct, Hypertriglyceridemia E78.1 [facility] [address] [place] [id number] [place] [address] 95133- 1251 Sep, Hypertriglyceridemia E78.1 [facility] [address] 39186- 8[address] Aug, Hypertriglyceridemia E78.1 and Elevated liver enzymes R74.8 [place] [address] [place] [id number] [place] [address] 50573- 8174 Aug, Attention deficit hyperactivity disorder (ADHD), predominantly inattentive type F90.0 [place] [address] [place] [id number] [place] [address] 39023- 5019 Jul, [facility] [address] [address]- [address] 07 Jul, 2017 Insect bite (nonvenomous) of abdominal wall, initial encounter S30.861A ; Other fatigue R53.83 ; Other malaise R53.81 ; Family history of early CAD Z82.49 ; Gastroesophageal reflux disease without esophagitis K21.9 and Attention deficit hyperactivity disorder (ADHD), predominantly inattentive type F90.0 [facility] [address] [place] [id number] [place] [address] 21861- 9904 Jun, [facility] [address] [place] [id number] [place] [address] 11 Nov, 2010 IMMUNIZATIONS No Known Immunizations SOCIAL HISTORY Never Assessed REASON FOR VISIT Controlled Med Refill PLAN OF CARE VITAL SIGNS MEDICATIONS Medication Instructions Dosage Frequency Start Date End Date Duration Status Adderall XR 30 MG Orally 2 times a day 1 capsule 12h 20 Oct, 2017 28 days Active Omeprazole 20 mg Orally Once a day 1 capsule 24h 30 Active RESULTS No Results PROCEDURES No Known procedures INSTRUCTIONS MEDICATIONS ADMINISTERED No Known Medications MEDICAL (GENERAL) HISTORY Type Description Date Medical History Anxiety disorder Medical History ADHD Surgical History hernia repair, x2 abdominal and inquinal Surgical History skin graft on Left finger
--- OUTSIDE RECORDS SUMMARY | 2018-07-20 01:33 | XMS REPORT ---
Author Author JUAN ALBERTO ARRIOLA Organization [facility] Address [address] [place] [address] Care Team Providers Care Deputy Administrator Name Role Phone JUAN ALBERTO ARRIOLA Unavailable PROBLEMS Type Condition ICD9-CM Code TOK16-QM Code Onset Dates Condition Status SNOMED Code Problem Anxiety F41.9 Active 99982977 Problem Hypertriglyceridemia E78.1 Active 136947890 Problem Attention deficit hyperactivity disorder (ADHD), predominantly inattentive type F90.0 Active 38411044 Problem Gastroesophageal reflux disease without esophagitis K21.9 Active 375128973 ALLERGIES No Known Allergies ENCOUNTERS Encounter Location Date Diagnosis [facility] [address] [place] [id number] [place] [address] 90764- 9097 Feb, Insect bite (nonvenomous) of abdominal wall, initial encounter S30.861A and Hypertriglyceridemia E78.1 [facility] [address] [place] [id number] [place] [address] 50112- 6383 Jan, Attention deficit hyperactivity disorder (ADHD), predominantly inattentive type F90.0 ; Anxiety F41.9 and Lipoma of breast D17.1 [facility] [address] [place] [id number] [place] [address] 34797 -3664 Jan, Encounter for immunization Z23 ; Superficial laceration of face S01.81XA and Injury of head, initial encounter S09.90XA [facility] [address] [place] [id number] [place] [address] 01918- 5184 Jan, Hypertriglyceridemia E78.1 [facility] [address] [place] [id number] [place] [address] 18998- 1091 Dec, Hypertrig[address]idemia E78.1 [facility] [address] [place] [id number] [place] [address] 54972- 1799 Dec, Hypertriglyceridemia E78.1 [place] [address] [place] [address] 80077- 4752 Nov, Hypertriglyceridemia E78.1 [place] [address] [place] [id number] [place] [address] 966760- 0782 Oct, Hypertriglyceridemia E78.1 [place] [address] [place] [id number] [place] [address] 65364- 8259 Sep, Hypertriglyceridemia E78.1 [place] [address] [place] [id number] [place] [address] 00339- 3811 Aug, Hypertriglyceridemia E78.1 and Elevated liver enzymes R74.8 [place] [id number] [place] [address] 08942- 6830 Aug, Attention deficit hyperactivity disorder (ADHD), predominantly inattentive type F90.0 [place] [id number] [place] [address] 26890- 9827 Jul, [place] [address] [place] [id number] [place] [address] 24208- 2176 Jul, Insect bite (nonvenomous) of abdominal wall, initial encounter S30.861A ; Other fatigue R53.83 ; Other malaise R53.81 ; Family history of early CAD Z82.49 ; Gastroesophageal reflux disease without esophagitis K21.9 and Attention deficit hyperactivity disorder (ADHD), predominantly inattentive type F90.0 [place] [address] [place] [address] 51858- 2584 Jun, [address] [place] [address] 04519- 7324 Nov, IMMUNIZATIONS No Known Immunizations SOCIAL HISTORY Never Assessed REASON FOR VISIT [facility] obtained Sherri DIAZ PLAN OF CARE VITAL SIGNS MEDICATIONS Unknown Medications RESULTS No Results PROCEDURES No Known procedures INSTRUCTIONS MEDICATIONS ADMINISTERED No Known Medications MEDICAL (GENERAL) HISTORY Type Description Date Medical History Anxiety disorder Medical History ADHD Surgical History hernia repair, x2 abdominal and inquinal Surgical History skin graft on Left finger
--- OUTSIDE RECORDS SUMMARY | 2018-07-20 01:33 | XMS REPORT ---
Author Author JUAN ALBERTO ARRIOLA Organization [facility] Address [address] [place] [address] Care Team Providers Care Multi Purpose Machine Operator Name Role Phone JUAN ALBERTO ARRIOLA Unavailable PROBLEMS Type Condition ICD9-CM Code WAE82-PA Code Onset Dates Condition Status SNOMED Code Problem Anxiety F41.9 Active 20101915 Problem Hypertriglyceridemia E78.1 Active 437558225 Problem Attention deficit hyperactivity disorder (ADHD), predominantly inattentive type F90.0 Active 38208671 Problem Gastroesophageal reflux disease without esophagitis K21.9 Active 561398159 ALLERGIES No Known Allergies ENCOUNTERS Encounter Location Date Diagnosis [place] [address] [address] March, Hemangioma D18.00 [facility] [address] [address]- [address] March, [address] [address]- [address] 10 Mar, 2018 Hypertriglyceridemia E78.1 [place] [address] 29530- 8884 16 Feb, 2018 Insect bite (nonvenomous) of abdominal wall, initial encounter S30.861A and Hypertriglyceridemia E78.1 [facility] [address] [address] 27[address] 30 Jan, 2018 Attention deficit hyperactivity disorder (ADHD), predominantly inattentive type F90.0 ; Anxiety F41.9 and Lipoma of breast D17.1 [facility] [address] [place] [id number] [place] [address] -3802 Jan, Encounter for immunization Z23 ; Superficial laceration of face S01.81XA and Injury of head, initial encounter S09.90XA [place] [address] [place] [id number] [place] [address] 60064- 1106 Jan, Hypertriglyceridemia E78.1 [facility] [address] [place] [id number] [place] [address] 98665- 6394 Dec, Hypertriglyceridemia E78.1 [facility] [address] [place] [id number] [place] [address] 47561- 3284 Dec, Hypertriglyceridemia E78.1 [facility] [address] [place] [id number] [place] [address] 36175- 4475 Nov, Hypertriglyceridemia E78.1 [facility] [address] 25976- 7354 Oct, Hypertriglyceridemia E78.1 [facility] [address] [place] [id number] [place] [address] 54900- 9189 Sep, Hypertriglyceridemia E78.1 [facility] [address] 74[address]- 8928 Aug, Hypertriglyceridemia E78.1 and Elevated liver enzymes R74.8 [place] [address] [place] [id number] [place] [address] 97408- 6857 Aug, Attention deficit hyperactivity disorder (ADHD), predominantly inattentive type F90.0 [place] [address] [place] [id number] [place] [address] 67653- 2403 Jul, [place] [address] [place] [id number] [place] [address] 81840- 5885 07 Jul, 2017 Insect bite (nonvenomous) of abdominal wall, initial encounter S30.861A ; Other fatigue R53.83 ; Other malaise R53.81 ; Family history of early CAD Z82.49 ; Gastroesophageal reflux disease without esophagitis K21.9 and Attention deficit hyperactivity disorder (ADHD), predominantly inattentive type F90.0 [facility] [address] [place] [address] 33787- 5648 Jun, [facility] [address] [place] [id number] [address] Nov, IMMUNIZATIONS No Known Immunizations SOCIAL HISTORY Never Assessed REASON FOR VISIT f/u labs-[facility] [place] PLAN OF CARE VITAL SIGNS Height 67 in 2017-09-08 Weight 250.0 lbs 2017-09-08 Temperature 98.1 degrees Fahrenheit 2017-09-08 Heart Rate 76 bpm 2017-09-08 Respiratory Rate 18 2017-09-08 BMI 39.15 kg/m2 2017-09-08 Blood pressure systolic 134 mmHg 2017-09-08 Blood pressure diastolic 88 mmHg 2017-09-08 MEDICATIONS Medication Instructions Dosage Frequency Start Date End Date Duration Status Omeprazole 20 mg Orally Once a day 1 capsule 24h 07 Jul, 2017 30 day(s ) Active Adderall XR 30 MG Orally 2 times a day 1 capsule 12h 20 Aug, 2017 28 days Active RESULTS No Results PROCEDURES No Known procedures INSTRUCTIONS MEDICATIONS ADMINISTERED No Known Medications MEDICAL (GENERAL) HISTORY Type Description Date Medical History Anxiety disorder Medical History ADHD Surgical History hernia repair, x2 abdominal and inquinal Surgical History skin graft on Left finger
--- OUTSIDE RECORDS SUMMARY | 2018-07-20 01:33 | XMS REPORT ---
Author Author JUAN ALBERTO ARRIOLA Organization [facility] Address [address] [place] [address] Care Team Providers Care Rn Plastics Name Role Phone JUAN ALBERTO ARRIOLA Unavailable PROBLEMS Type Condition ICD9-CM Code CGJ42-LZ Code Onset Dates Condition Status SNOMED Code Problem Anxiety F41.9 Active 39172283 Problem Hypertriglyceridemia E78.1 Active 348301885 Problem Attention deficit hyperactivity disorder (ADHD), predominantly inattentive type F90.0 Active 24874658 Problem Gastroesophageal reflux disease without esophagitis K21.9 Active 404438994 ALLERGIES No Information ENCOUNTERS Encounter Location Date Diagnosis [place] [address] [address] Apr, Hypertriglyceridemia E78.1 [facility] [address] [address]- 9948 15 Mar, 2018 Hemangioma D18.00 [facility] [address] [address]- [address] March, [facility] [address] [place] [id number] [place] [address] 95487- 2007 March, Hypertriglyceridemia E78.1 [facility] [address] 21047- [address]16 Feb, Insect bite (nonvenomous) of abdominal wall, initial encounter S30.861A and Hypertriglyceridemia E78.1 [facility] [address] [address]- [address] Jan, Attention deficit hyperactivity disorder (ADHD), predominantly inattentive type F90.0 ; Anxiety F41.9 and Lipoma of breast D17.1 [facility] [address] [address] Jan, Encounter for immunization Z23 ; Superficial laceration of face S01.81XA and Injury of head, initial encounter S09.90XA [place] [address] 637[address]- 6603 Jan, Hypertriglyceridemia E78.1 [place] [address] 50246- 1896 Dec, Hypertriglyceridemia E78.1 [place] [address] 39377- 8656 Dec, Hypertriglyceridemia E78.1 [place] [address] 72348- 9158 Nov, Hypertriglyceridemia E78.1 [place] [address] 34290- 7253 Oct, Hypertriglyceridemia E78.1 [place] [address] 82185- 5611 Sep, Hypertriglyceridemia E78.1 [place] [address] 60406- 3378 Aug, Hypertriglyceridemia E78.1 and Elevated liver enzymes R74.[address] [address]- 8668 04 Aug, 2017 Attention deficit hyperactivity disorder (ADHD), predominantly inattentive type F90.0 [place] [address] 07483- 5181 12 Jul, 2017 [place] [address] 47[address]- 7230 07 Jul, 2017 Insect bite (nonvenomous) of abdominal wall, initial encounter S30.861A ; Other fatigue R53.83 ; Other malaise R53.81 ; Family history of early CAD Z82.49 ; Gastroesophageal reflux disease without esophagitis K21.9 and Attention deficit hyperactivity disorder (ADHD), predominantly inattentive type F90.0 [place] [address] [facility] [id number] [address] Jun, [facility] [address] [facility] [id number] [address] Nov, IMMUNIZATIONS No Known Immunizations SOCIAL HISTORY [...]
--- OUTSIDE RECORDS SUMMARY | 2018-07-20 01:33 | XMS REPORT ---
Author Author JUAN ALBERTO ARRIOLA Organization [facility] Address [address] [place] [address] Care Team Providers Care Church Secretary Name Role Phone JUAN ALBERTO ARRIOLA Unavailable PROBLEMS Type Condition ICD9-CM Code WRI82-YF Code Onset Dates Condition Status SNOMED Code Problem Anxiety F41.9 Active 93408712 Problem Hypertriglyceridemia E78.1 Active 169974735 Problem Attention deficit hyperactivity disorder (ADHD), predominantly inattentive type F90.0 Active 02701791 Problem Gastroesophageal reflux disease without esophagitis K21.9 Active 653353844 ALLERGIES No Known Allergies ENCOUNTERS Encounter Location Date Diagnosis [address] [address] March, [address] [address]- [address] Feb, Insect bite (nonvenomous) of abdominal wall, initial encounter S30.861A and Hypertriglyceridemia E78.1 [facility] [address] [place] [id number] [place] [address] 91380- 3467 30 Jan, 2018 Attention deficit hyperactivity disorder (ADHD), predominantly inattentive type F90.0 ; Anxiety F41.9 and Lipoma of breast D17.1 [facility] [address] [address] Jan, Encounter for immunization Z23 ; Superficial laceration of face S01.81XA and Injury of head, initial encounter S09.90XA [facility] [address] [place] [address] 49429- 2426 Jan, Hypertriglyceridemia E78.1 [facility] [address] [place] [id number] [place] [address] 62643- 6981 Dec, Hypertriglyceridemia E78.1 [place] [address] [place] [address] 53570- 7446 Dec, Hypertriglyceridemia E78.1 [place] [address] [place] [id number] [place] [address] 54683- 7882 Nov, Hypertriglyceridemia E78.1 [place] [address] [place] [id number] [place] [address] 38891- 6875 Oct, Hypertriglyceridemia E78.1 [place] [address] 27647- 9171 Sep, Hypertriglyceridemia E78.1 [place] [address] 49378- 1446 Aug, Hypertriglyceridemia E78.1 and Elevated liver enzymes R74.[address] 0[address]- [address]300 Aug, Attention deficit hyperactivity disorder (ADHD), predominantly inattentive type F90.0 [place] [address] [place] [id number] [place] [address] 09615- 8537 Jul, [address] 67[address]- 1214 Jul, Insect bite (nonvenomous) of abdominal wall, initial encounter S30.861A ; Other fatigue R53.83 ; Other malaise R53.81 ; Family history of early CAD Z82.49 ; Gastroesophageal reflux disease without esophagitis K21.9 and Attention deficit hyperactivity disorder (ADHD), predominantly inattentive type F90.0 [place] [address] [place] [id number] [place] [address] 59448- 8643 Jun, [place] [id number] [place] [address] 80156- 4971 Nov, IMMUNIZATIONS No Known Immunizations SOCIAL HISTORY Never Assessed REASON FOR VISIT Adderall refill PLAN OF CARE VITAL SIGNS MEDICATIONS Medication Instructions Dosage Frequency Start Date End Date Duration Status Adderall XR 30 MG Orally Once a day 1 capsule in the morning 24h Aug, 28 days Active RESULTS No Results PROCEDURES No Known procedures INSTRUCTIONS MEDICATIONS ADMINISTERED No Known Medications MEDICAL (GENERAL) HISTORY Type Description Date Medical History Anxiety disorder Medical History ADHD Surgical History hernia repair, x2 abdominal and inquinal Surgical History skin graft on Left finger
--- OUTSIDE RECORDS SUMMARY | 2018-07-20 01:33 | XMS REPORT ---
Author Author JUAN ALBERTO ARRIOLA Organization [facility] Address [address] [place] [address] Care Team Providers Care Restaurant Busser Name Role Phone JUAN ALBERTO ARRIOLA Unavailable PROBLEMS Type Condition ICD9-CM Code NTA45-FW Code Onset Dates Condition Status SNOMED Code Problem Anxiety F41.9 Active 85312242 Problem Hypertriglyceridemia E78.1 Active 702107063 Problem Attention deficit hyperactivity disorder (ADHD), predominantly inattentive type F90.0 Active 11941096 Problem Gastroesophageal reflux disease without esophagitis K21.9 Active 547145690 ALLERGIES No Information ENCOUNTERS Encounter Location Date Diagnosis [facility] [address] [place] [id number] [place] [address] 37854- 5326 Feb, Insect bite (nonvenomous) of abdominal wall, initial encounter S30.861A and Hypertriglyceridemia E78.1 [facility] [address] [place] [id number] [place] [address] 40993- 5664 Jan, Attention deficit hyperactivity disorder (ADHD), predominantly inattentive type F90.0 ; Anxiety F41.9 and Lipoma of breast D17.1 [facility] [address] [place] [id number] [place] [address] 17203 -2796 Jan, Encounter for immunization Z23 ; Superficial laceration of face S01.81XA and Injury of head, initial encounter S09.90XA [facility] [address] [place] [id number] [place] [address] 59136- 1219 Jan, Hypertriglyceridemia E78.1 [facility] [address] [place] [id number] [place] [address] 95041- 7762 Dec, Hypertriglyceridemia E78.1 [facility] [address] [place] [id number] [place] [address] 53229- 6846 Dec, Hypertriglyceridemia E78.1 [place] [address] [place] [address] 35374- 9023 Nov, Hypertriglyceridemia E78.1 [place] [address] [place] [id number] [place] [address] 81817- 4248 Oct, Hypertriglyceridemia E78.1 [place] [address] [place] [id number] [place] [address] 92019- 0803 Sep, Hypertriglyceridemia E78.1 [place] [address] [address]- 1553 Aug, Hypertriglyceridemia E78.1 and Elevated liver enzymes R74.[address] 0[address]- 0344 Aug, Attention deficit hyperactivity disorder (ADHD), predominantly inattentive type F90.0 [place] [id number] [place] [address] 72795- 7834 Jul, [place] [address] [place] [id number] [place] [address] 92803- 6480 Jul, Insect bite (nonvenomous) of abdominal wall, initial encounter S30.861A ; Other fatigue R53.83 ; Other malaise R53.81 ; Family history of early CAD Z82.49 ; Gastroesophageal reflux disease without esophagitis K21.9 and Attention deficit hyperactivity disorder (ADHD), predominantly inattentive type F90.0 [place] [address] [place] [address] 60382- 6423 Jun, [place] [id number] [place] [address] 74212- 8852 Nov, IMMUNIZATIONS No Known Immunizations SOCIAL HISTORY Never Assessed REASON FOR VISIT PLAN OF CARE VITAL SIGNS MEDICATIONS Medication Instructions Dosage Frequency Start Date End Date Duration Status Doxycycline Hyclate 100 mg Orally every 12 hrs 1 tablet 12h 12 Jul, 2017 Jul, 10 days Active RESULTS No Results PROCEDURES No Known procedures INSTRUCTIONS MEDICATIONS ADMINISTERED No Known Medications MEDICAL (GENERAL) HISTORY Type Description Date Medical History Anxiety disorder Medical History ADHD Surgical History hernia repair, x2 abdominal and inquinal Surgical History skin graft on Left finger
--- OUTSIDE RECORDS SUMMARY | 2018-07-20 01:34 | XMS REPORT ---
Author Author JUAN ALBERTO ARRIOLA Organization [facility] Address [address] [place] [address] Care Team Providers Care Tooling Supervisor Name Role Phone JUAN ALBERTO ARRIOLA Unavailable PROBLEMS Type Condition ICD9-CM Code NCB74-MR Code Onset Dates Condition Status SNOMED Code Problem Anxiety F41.9 Active 91635800 Problem Hypertriglyceridemia E78.1 Active 941865835 Problem Attention deficit hyperactivity disorder (ADHD), predominantly inattentive type F90.0 Active 44725119 Problem Gastroesophageal reflux disease without esophagitis K21.9 Active 538266458 ALLERGIES No Known Allergies ENCOUNTERS Encounter Location Date Diagnosis [address] [address] March, [address] [address] Feb, Insect bite (nonvenomous) of abdominal wall, initial encounter S30.861A and Hypertriglyceridemia E78.1 [facility] [address] [place] [id number] [place] [phone] Jan, 2018 Attention deficit hyperactivity disorder (ADHD), predominantly inattentive type F90.0 ; Anxiety F41.9 and Lipoma of breast D17.1 [facility] [address] [address] Jan, Encounter for immunization Z23 ; Superficial laceration of face S01.81XA and Injury of head, initial encounter S09.90XA [address] [address] Jan, Hypertriglyceridemia E78.1 [facility] [address] [place], [place] [id number] [place] [phone] Dec, Hypertriglyceridemia E78.1 [place] [id number] [place] [phone] Dec, Hypertriglyceridemia E78.1 [place] [address] [place] [id number] [place] [phone] Nov, Hypertriglyceridemia E78.1 [place] [address] [place] [id number] [place] [phone] Oct, Hypertriglyceridemia E78.1 [place] [address] [id number] [place] [address] Sep, Hypertriglyceridemia E78.1 [place] [address] [address] Aug, Hypertriglyceridemia E78.1 and Elevated liver enzymes R74.8 [place] [id number] [place] [phone] Aug, Attention deficit hyperactivity disorder (ADHD), predominantly inattentive type F90.0 [place] [address] [id number] [place] [address] Jul, [place] [id number] [place] [address] Jul, Insect bite (nonvenomous) of abdominal wall, initial encounter S30.861A ; Other fatigue R53.83 ; Other malaise R53.81 ; Family history of early CAD Z82.49 ; Gastroesophageal reflux disease without esophagitis K21.9 and Attention deficit hyperactivity disorder (ADHD), predominantly inattentive type F90.0 [place] [id number] [place] [phone] Jun, [place] [id number] [place] [phone] Nov, IMMUNIZATIONS No Known Immunizations SOCIAL HISTORY Never Assessed REASON FOR VISIT [facility]- states hasnt seen a provider in 15 years, had a tick bite about a month ago- Delilah Clarke RN PLAN OF CARE VITAL SIGNS Height 67 in 2017-07-27 Weight 254 lbs 2017-07-27 Temperature 98.0 degrees Fahrenheit 2017-07-27 Heart Rate 78 bpm 2017-07-27 Respiratory Rate 18 2017-07-27 BMI 39.78 kg/m2 2017-07-27 Blood pressure systolic 128 mmHg 2017-07-27 Blood pressure diastolic 82 mmHg 2017-07-27 MEDICATIONS Medication Instructions Dosage Frequency Start Date End Date Duration Status Omeprazole 20 mg Orally Once a day 1 capsule 24h Jul, 30 day(s ) Active Adderall XR 30 MG Orally Once a day 1 capsule in the morning 24h Jul, Active RESULTS Name Result Date Reference Range TESTOSTERONE, TOTAL 2017-07-27 Testosterone, Serum 356 264-916 TSH 2017-07-27 TSH 2.720 0.450-4.500 CBC 2017-07-27 WBC 5.7 3.4-10.8 RBC 4.98 4.14-5.80 Hemoglobin 15.5 12.6-17.7 Hematocrit 46.4 37.5-51.0 MCV 93 79-97 MCH 31.1 26.6-33.0 MCHC 33.4 31.5-35.7 RDW 14.0 12.3-15.4 Platelets 267 150-379 Neutrophils 52 Lymphs 37 Monocytes 7 Eos 4 Basos 0 Immature Cells Neutrophils (Absolute) 3.0 1.4-7.0 Lymphs (Absolute) 2.1 0.7-3.1 Monocytes(Absolute) 0.4 0.1-0.9 Eos (Absolute) 0.2 0.0-0.4 Baso (Absolute) 0.0 0.0-0.2 Immature Granulocytes 0 Immature Grans (Abs) 0.0 0.0-0.1 NRBC Hematology Comments: ESR/SED RATE 2017-07-27 Sedimentation Rate-Westergren 9 0-15 LIPID PANEL 2017-07-27 Cholesterol, Total 215 100-199 Triglycerides 331 0-149 HDL Cholesterol 35 >39 VLDL Cholesterol Yaron 66 5-40 LDL Cholesterol Calc 114 0-99 Comment: CMP 2017-07-27 Glucose, Serum 93 65-99 BUN 20 6-24 Creatinine, Serum 1.26 0.76-1.27 eGFR If NonAfricn Am 68 >59 eGFR If Africn Am 79 >59 BUN/Creatinine Ratio 16 9-20 Sodium, Serum 142 134-144 Potassium, Serum 4.7 3.5-5.2 Chloride, Serum 98 96-106 Carbon Dioxide, Total 23 18-29 Calcium, Serum 10.1 8.7-10.2 Protein, Total, Serum 7.2 6.0-8.5 Albumin, Serum 4.6 3.5-5.5 Globulin, Total 2.6 1.5-4.5 A/G Ratio 1.8 1.2-2.2 Bilirubin, Total 0.7 0.0-1.2 Alkaline Phosphatase, S 116 39-117 AST (SGOT) 44 0-40 ALT (SGPT) 75 0-44 KANDIS MTN SPOTTED FEVER, IgG 2017-07-27 RMSF, IgG, EIA KANDIS MTN SPOTTED FEVER, IgM 2017-07-[address] Kandis M[address] Spotted Fever, IgM TESTOSTERONE, TOTAL 2017-07-27 Testosterone, Serum [phone] KANDIS MTN SPOTTED FEVER, IgM 2017-07-27 Kandis Mtn Spotted Fever, IgM 0.27 0.00-0.89 LYME, TOTAL ANTIBODY/REFLEX WESTERN BLOT 2017-07-27 Lyme IgG/IgM Ab <0.91 0.00-0.90 TSH 2017-07-27 TSH 2.720 0.450-4.500 CBC 2017-07-27 WBC 5.7 3.4-10.8 RBC 4.98 4.14-5.80 Hemoglobin 15.5 12.6-17.7 Hematocrit 46.4 37.5-51.0 MCV 93 79-97 MCH 31.1 26.6-33.0 MCHC 33.4 31.5-35.7 RDW 14.0 12.3-15.4 Platelets 267 150-379 Neutrophils 52 Lymphs 37 Monocytes 7 Eos 4 Basos 0 Neutrophils (Absolute) 3.0 1.4-7.0 Lymphs (Absolute) 2.1 0.7-3.1 Monocytes(Absolute) 0.4 0.1-0.9 Eos (Absolute) 0.2 0.0-0.4 Baso (Absolute) 0.0 0.0-0.2 Immature Granulocytes 0 Immature Grans (Abs) 0.0 0.0-0.1 ESR/SED RATE 2017-07-27 Sedimentation Rate-Westergren 9 0-15 CRP 2017-07-27 C-Reactive Protein, Quant 2.5 0.0-4.9 LIPID PANEL 2017-07-27 Cholesterol, Total 215 100-199 Triglycerides 331 0-149 HDL Cholesterol 35 >39 VLDL Cholesterol Yaron 66 5-40 LDL Cholesterol Calc 114 0-99 CMP 2017-07-27 Glucose, Serum 93 65-99 BUN 20 6-24 Creatinine, Serum 1.26 0.76-1.27 eGFR If NonAfricn Am 68 >59 eGFR If Africn Am 79 >59 BUN/Creatinine Ratio 16 9-20 Sodium, Serum 142 134-144 Potassium, Serum 4.7 3.5-5.2 Chloride, Serum 98 96-106 Carbon Dioxide, Total 23 18-29 Calcium, Serum 10.1 8.7-10.2 Protein, Total, Serum 7.2 6.0-8.5 Albumin, Serum 4.6 3.5-5.5 Globulin, Total 2.6 1.5-4.5 A/G Ratio 1.8 1.2-2.2 Bilirubin, Total 0.7 0.0-1.2 Alkaline Phosphatase, S 116 39-117 AST (SGOT) 44 0-40 ALT (SGPT) 75 0-44 TESTOSTERONE, TOTAL 2017-07-27 Testosterone, Serum [phone] KANDIS MTN SPOTTED FEVER, IgG 2017-07-27 RMSF, IgG, EIA Positive Negative RMSF, IgG, IFA 1:256 Neg <1:64 KANDIS MTN SPOTTED FEVER, IgM 2017-07-27 [place]andis Mtn Spotted Fever, IgM 0.27 0.00-0.89 LYME, TOTAL ANTIBODY/REFLEX WESTERN BLOT 2017-07-27 Lyme IgG/IgM Ab <0.91 0.00-0.90 TSH 2017-07-27 TSH 2.720 0.450-4.500 CBC 2017-07-27 WBC 5.7 3.4-10.8 RBC 4.98 4.14-5.80 Hemoglobin 15.5 12.6-17.7 Hematocrit 46.4 37.5-51.0 MCV 93 79-97 MCH 31.1 26.6-33.0 MCHC 33.4 31.5-35.7 RDW 14.0 12.3-15.4 Platelets 267 150-379 Neutrophils 52 Lymphs 37 Monocytes 7 Eos 4 Basos 0 Neutrophils (Absolute) 3.0 1.4-7.0 Lymphs (Absolute) 2.1 0.7-3.1 Monocytes(Absolute) 0.4 0.1-0.9 Eos (Absolute) 0.2 0.0-0.4 Baso (Absolute) 0.0 0.0-0.2 Immature Granulocytes 0 Immature Grans (Abs) 0.0 0.0-0.1 ESR/SED RATE 2017-07-27 Sedimentation Rate-Westergren 9 0-15 CRP 2017-07-27 C-Reactive Protein, Quant 2.5 0.0-4.9 LIPID PANEL 2017-07-27 Cholesterol, Total 215 100-199 Triglycerides 331 0-149 HDL Cholesterol 35 >39 VLDL Cholesterol Yaron 66 5-40 LDL Cholesterol Calc 114 0-99 CMP 2017-07-27 Glucose, Serum 93 65-99 BUN 20 6-24 Creatinine, Serum 1.26 0.76-1.27 eGFR If NonAfricn Am 68 >59 eGFR If Africn Am 79 >59 BUN/Creatinine Ratio 16 9-20 Sodium, Serum 142 134-144 Potassium, Serum 4.7 3.5-5.2 Chloride, Serum 98 96-106 Carbon Dioxide, Total 23 18-29 Calcium, Serum 10.1 8.7-10.2 Protein, Total, Serum 7.2 6.0-8.5 Albumin, Serum 4.6 3.5-5.5 Globulin, Total 2.6 1.5-4.5 A/G Ratio 1.8 1.2-2.2 Bilirubin, Total 0.7 0.0-1.2 Alkaline Phosphatase, S 116 39-117 AST (SGOT) 44 0-40 ALT (SGPT) 75 0-44 PROCEDURES Procedure Date Ordered Result Body Site RBC SED RATE, AUTOMATED Jul 27, 2017 VENIPUNCT, ROUTINE* Jul 27, 2017 COMPREHEN METABOLIC PANEL Jul 27, 2017 LYME DISEASE ANTIBODY Jul 27, 2017 RICKETTSIA ANTIBODY Jul 27, 2017 COMPLETE CBC W/AUTO DIFF WBC Jul 27, 2017 ASSAY THYROID STIM HORMONE Jul 27, 2017 C-REACTIVE PROTEIN Jul 27, 2017 ASSAY OF TOTAL TESTOSTERONE Jul 27, 2017 LIPID PANEL Jul 27, 2017 INSTRUCTIONS MEDICATIONS ADMINISTERED No Known Medications MEDICAL (GENERAL) HISTORY Type Description Date Medical History Anxiety disorder Medical History ADHD Surgical History hernia repair, x2 abdominal and inquinal Surgical History skin graft on Left finger
[2018-07-20] MEDS: fentaNYL INJECTION 100 MCG/2 ML AMP IVP STA (02:37)
[2018-07-20] MEDS: ONDANSETRON 4 MG/2 ML (SDV) Z0FRAN IVP ONE (02:37)
[2018-07-20] MEDS: NS IV 1000 ML 1,000 ML IV ONE (02:37)
[2018-07-20 02:42] LABS: BACTERIA,URINE TRACE /HPF; BILIRUBIN,URINE NEGATIVE (NEGATIVE); GLUCOSE, URINE (UA) 1+ (NEGATIVE); KETONES,URINE 1+ (NEGATIVE); LEUKOCYTE ESTERASE ,URINE NEGATIVE (NEGATIVE); NITRITE,URINE NEGATIVE (NEGATIVE); PH,URINE 8 (5-9); PROTEIN,URINE NEGATIVE (NEGATIVE); SQUAMOUS EPITHELIAL CELL,UR RARE /HPF; UROBILINOGEN,URINE NORMAL (NORMAL)
[2018-07-20 02:43] LABS: CLARITY,URINE CLEAR; COLOR,URINE YELLOW
[2018-07-20 02:48] LABS: BASOPHILS % (AUTO) 0 % (0-10); EOSINOPHILS % (AUTO) 0 % (0-10); HEMATOCRIT 41 % (40-54); HEMOGLOBIN 14.6 G/DL (13.3-17.7); LYMPHOCYTES # (AUTO) 1.4 X 10^3 (1.0-4.0); LYMPHOCYTES % (AUTO) 15 % (12-44); MEAN CORPUSCULAR HEMOGLOBIN 32 PG (25-34); MEAN CORPUSCULAR HGB CONC 36 G/DL (32-36); MEAN CORPUSCULAR VOLUME 88 FL (80-99); MEAN PLATELET VOLUME 9.9 FL (7.4-10.4); MONOCYTES # (AUTO) 0.4 X 10^3 (0.0-1.0); MONOCYTES % (AUTO) 4 % (0-12); NEUTROPHILS # (AUTO) 7.2 X 10^3 (1.8-7.8); NEUTROPHILS % (AUTO) 80 % (42-75); PLATELET COUNT 287 10^3/uL (130-400); RED BLOOD COUNT 4.61 10^6/uL (4.35-5.85); RED CELL DISTRIBUTION WIDTH 13.5 % (10.0-14.5)
--- NOTE | 2018-07-20 02:48 | ED Abdominal Pain ---
General Chief Complaint: Abdominal/GI Problems Stated Complaint: ABD PAIN Nursing Triage Note: Patient advises that his abdominal pain began at approximately 2130 tonight and that he has vomitted twice. Sepsis Screen: No Definite Risk Source of Information: Patient Exam Limitations: No Limitations History of Present Illness Date Seen by Provider: Jul 20, 2018 Time Seen by Provider: 02:30 Initial Comments Here with report of vomiting abdominal pain that began about 930 p.m. last night. States that he has left lower quadrant abdominal pain. Had normal bowel movement yesterday. Denies blood in his vomit or stool. Reports that he' s had fevers and chills with the incident. Timing/Duration: 4-6 Hours Severity/Quality: Moderate Location: LLQ Radiation: No Radiation Activities at Onset: None Modifying Factors: Worsens With Movement Associated Symptoms: No Back Pain, No Chest Pain; Fever/Chills, Nausea/Vomiting ; No Shortness of Air, No Weakness Allergies and Home Medications Allergies Coded Allergies: No Known Drug Allergies (Unverified , 07/20/18) Patient Home Medication List Home Medication List Reviewed: Yes Review of Systems Review of Systems Constitutional: see HPI, chills, fever EENTM: No Symptoms Reported Respiratory: No Symptoms Reported Cardiovascular: No Symptoms Reported Gastrointestinal: See HPI, Abdominal Pain, Nausea; Denies Rectal Bleeding; Vomiting Genitourinary: No Symptoms Reported Musculoskeletal: no symptoms reported All Other Systems Reviewed Negative Unless Noted: Yes Past Hmdmyyl-Vmdqin-Wyrgfy Hx Past Med/Social Hx: Reviewed Nursing Past Med/Soc Hx Patient Social History Alcohol Use: Denies Use Recreational Drug Use: No Smoking Status: Never a Smoker 2nd Hand Smoke Exposure: No Recent Foreign Travel: No Contact w/Someone Who Travel: No Recent Infectious Disease Expo: No Recent Hopitalizations: No Physical Abuse: No Sexual Abuse: No Seasonal Allergies Seasonal Allergies: No Past Medical History Surgeries: Yes (hernia) Respiratory: No Cardiac: No Neurological: No Genitourinary: No Gastrointestinal: No Musculoskeletal: No Endocrine: No HEENT: No Cancer: No Psychosocial: No Nursing Suicide Risk Score: 0 Integumentary: No Family Medical History Reviewed Nursing Family Hx No Pertinent Family Hx Physical Exam Vital Signs Vital Signs - First Documented 07/20/18 01:55 Pulse 56 Resp 14 B/P (MAP) 182/106 (131) Pulse Ox 98 O2 Delivery Room Air Capillary Refill : Less Than 3 Seconds Height/Weight/BMI Height: 5'7.00" Weight: 230lbs. oz. 104.345571ed; BMI Method:Stated General Appearance: WD/WN, mild distress Neck: full range of motion, supple Respiratory: lungs clear, normal breath sounds Cardiovascular: regular rate, rhythm, no murmur Peripheral Pulses: 2+ Dorsalis Pedis (R), 2+ Left Dors-Pedis (L), 2+ Radial Pulses (R), 2+ Radial Pulses (L) Gastrointestinal: soft, tenderness (left lower quadrant) Extremities: non-tender, normal inspection Back: normal inspection, no CVA tenderness, no vertebral tenderness Neurologic/Psychiatric: alert, oriented x 3 Skin: normal color, warm/dry Progress/Results/Core Measures Results/Orders Lab Results Laboratory Tests Test 07/20/18 01:55 07/20/18 02:30 Range/Units Urine Color YELLOW Urine Clarity CLEAR Urine pH 8 5-9 Urine Specific [place] 1.015 L 1.016-1.022 Urine Protein NEGATIVE NEGATIVE Urine Glucose (UA) 1+ H NEGATIVE Urine Ketones 1+ H NEGATIVE Urine Nitrite NEGATIVE NEGATIVE Urine Bilirubin NEGATIVE NEGATIVE Urine Urobilinogen NORMAL NORMAL MG/DL Urine Leukocyte Esterase NEGATIVE NEGATIVE Urine RBC (Auto) 3+ H NEGATIVE Urine RBC 5-10 H /HPF Urine WBC NONE /HPF Urine Squamous Epithelial Cells RARE /HPF Urine Crystals NONE /LPF Urine Bacteria TRACE /HPF Urine Casts NONE /LPF Urine Mucus NEGATIVE /LPF Urine Culture Indicated NO White Blood Count 9.0 4.3-11.0 10^3/uL Red Blood Count 4.61 4.35-5.85 10^6/uL Hemoglobin 14.6 13.3-17.7 G/DL Hematocrit 41 40-54 % Mean Corpuscular Volume 88 80-99 FL Mean Corpuscular Hemoglobin 32 25-34 PG Mean Corpuscular Hemoglobin Concent 36 32-36 G/DL Red Cell Distribution Width 13.5 10.0-14.5 % Platelet Count 287 130-400 10^3/uL Mean Platelet Volume 9.9 7.4-10.4 FL Neutrophils (%) (Auto) 80 H 42-75 % Lymphocytes (%) (Auto) 15 12-44 % Monocytes (%) (Auto) 4 0-12 % Eosinophils (%) (Auto) 0 0-10 % Basophils (%) (Auto) 0 0-10 % Neutrophils # (Auto) 7.2 1.8-7.8 X 10^3 Lymphocytes # (Auto) 1.4 1.0-4.0 X 10^3 Monocytes # (Auto) 0.4 0.0-1.0 X 10^3 Eosinophils # (Auto) 0.0 0.0-0.3 10^3/uL Basophils # (Auto) 0.0 0.0-0.1 10^3/uL Sodium Level 140 135-145 MMOL/L Potassium Level 3.4 L 3.6-5.0 MMOL/L Chloride Level 107 98-107 MMOL/L Carbon Dioxide Level 21 21-32 MMOL/L Anion Gap 12 5-14 MMOL/L Blood Urea Nitrogen 20 H 7-18 MG/DL Creatinine 1.40 H 0.60-1.30 MG/DL Estimat Glomerular Filtration Rate 54 BUN/Creatinine Ratio 14 Glucose Level 145 H 70-105 MG/DL Calcium Level 9.6 8.5-10.1 MG/DL Corrected Calcium 9.2 8.5-10.1 MG/DL Total Bilirubin 0.7 0.1-1.0 MG/DL Aspartate Amino Transf (AST/SGOT) 25 5-34 U/L Alanine Aminotransferase (ALT/SGPT) 31 0-55 U/L Alkaline Phosphatase 94 40-136 U/L C-Reactive Protein High Sensitivity 0.20 0.00-0.50 MG/DL Total Protein 7.2 6.4-8.2 GM/DL Albumin 4.5 3.2-4.5 GM/DL My Orders Orders - DIANE WILDER MD Cbc With Automated Diff (07/20/18 02:22) Comprehensive Metabolic Panel (07/20/18 02:22) Hs C Reactive Protein (07/20/18 02:22) Ua Culture If Indicated (07/20/18 02:22) Saline Lock/Iv-Start (07/20/18 02:22) Ns Iv 1000 Ml (Sodium Chloride 0.9%) (07/20/18 02:22) Ondansetron Injection (Zofran Injectio (07/20/18 02:30) Fentanyl Injection (Sublimaze Injection (07/20/18 02:22) Ct Abdomen/Pelvis W (07/20/18 02:22) Iohexol Injection (Omnipaque 350 Mg/Ml 1 (07/20/18 03:15) Ns (Ivpb) (Sodium Chloride 0.9%) (07/20/18 03:15) Hydrocodone/Apap 7.5/325 Tab (Lortab 7. (07/20/18 03:56) Ketorolac Injection (Toradol Injection) (07/20/18 03:56) Medications Given in ED Current Medications Medications Dose Ordered Sig/Krystle Route Start Time Stop Time Status Last Admin Dose Admin Iohexol 100 ml ONCE ONCE IV 07/20/18 03:15 07/20/18 03:16 DC 07/20/18 03:19 100 ML Ondansetron HCl 4 mg ONCE ONCE IVP 07/20/18 02:30 07/20/18 02:31 DC 07/20/18 02:37 4 MG Sodium Chloride 250 ml ONCE ONCE IV 07/20/18 03:15 07/20/18 03:16 DC 07/20/18 03:19 80 ML Sodium Chloride 1,000 ml @ 0 mls/hr Q0M ONCE IV 07/20/18 02:22 07/20/18 02:24 DC 07/20/18 02:37 0 MLS/HR Vital Signs/I&O 07/20/18 01:55 Pulse 56 Resp 14 B/P (MAP) 182/106 (131) Pulse Ox 98 O2 Delivery Room Air Blood Pressure Mean: 131 Progress Progress Note : Progress Note Seen and evaluated. IV, labs and UA ordered. Normal saline 1 L bolus. Fentanyl 75 g IV and Zofran 4 mg IV ordered. Monitor patient. CT abdomen pelvis with contrast ordered. 0405: CT results noted. Small stone noted. Pain is better controlled. We will give Toradol 15 mg IV and hydrocodone 7.5 mg by mouth. Discharged home with return precautions. Patient verbalize understanding instructions and agreement with plan. Diagnostic Imaging Diagonstic Imaging: CT Plain Films/CT/US/NM/MRI: abdomen, pelvis Comments Mild left hydronephrosis and perinephric stranding associated with a 3 mm stone in the left UVJ. Moderate sigmoid diverticulosis without evidence of diverticulitis. Reviewed: [facility] Primary Impression: Ureterolithiasis Additional Impression: Abdominal pain, left lower quadrant Disposition: HOME, SELF-CARE Condition: Stable Departure-Patient Inst. Decision time for Depature: 04:09 Referrals: [facility]/MARY ELLEN (PCP) Primary Care Physician JUAN ALBERTO ARRIOLA (Family) Primary Care Physician PARKER OLSON MD Patient Instructions: Acute Abdomen (Belly Pain), Adult (DC), Kidney Stones (DC ) Add. Discharge Instructions: All discharge instructions reviewed with patient and/or family. Voiced understanding. Drink plenty of fluids. Take medications as directed. You may take ibuprofen and 600 mg every 8 hours as needed for pain. You may take acetaminophen/ Tylenol 1000 mg every 8 hours as needed for pain if you're not taking the prescribed pain medicine as both have acetaminophen in them. Follow-up with the urologist next week for recheck and further evaluation. Call his office on Monday or Monday for appointment. You should strain all urine and monitor for passing of the stone. Return for worse pain, fever, vomiting, weakness, breathing problems or other concerns as needed. Scripts Hydrocodone Bit/Acetaminophen (Hydrocodone/Acetaminophen 5/325mg Tablet) 1 Tab Tab 1-2 EACH PO Q6H PRN for PAIN-MODERATE, #15 TAB 0 Refills Prov: DIANE WILDER MD 07/20/18 Ciprofloxacin HCl (Ciprofloxacin HCl) 500 Mg Tablet 500 MG PO BID, #14 TAB Prov: DIANE WILDER MD 07/20/18 Copy Copies To 1: RENU WORTHINGTON TIMOTHY D MD Jul 20, 2018 02:48
[2018-07-20 03:06] LABS: ALBUMIN 4.5 GM/DL (3.2-4.5); BILIRUBIN,TOTAL 0.7 MG/DL (0.1-1.0); CALCIUM 9.6 MG/DL (8.5-10.1); CREATININE SERUM 1.4 MG/DL (0.60-1.30); POTASSIUM 3.4 MMOL/L (3.6-5.0); TOTAL PROTEIN 7.2 GM/DL (6.4-8.2)
[2018-07-20] MEDS: NS 250 ML (IVPB) BAG IV ONE (03:19)
[2018-07-20] MEDS: IOHEXOL 350 MG/ML 100 ML (OMNIPAQUE 350) VIAL IV ONE (03:19)
[2018-07-20] MEDS: KETOROLAC 30 MG/ML VIAL IVP STA (04:02)
[2018-07-20] MEDS: HYDROcodone/APAP 7.5 MG/325 MG (LORTAB, LORCET PLUS) TABLET PO STA (04:02)
[2018-07-20] MEDS ORDERED: CIPR500T4 PO (04:11)
[2018-07-20] MEDS ORDERED: ACHD5005 PO (04:11)
[2018-07-20 04:23] VITALS: BP 178/104
--- NOTE | 2018-07-20 07:34 | Diagnostic Imaging Report ---
PROCEDURE: CT abdomen and pelvis with contrast. TECHNIQUE: Multiple contiguous axial images were obtained through the abdomen and pelvis after administration of intravenous contrast. INDICATION: Left flank pain, abdominal pain. COMPARISON: None. FINDINGS: There are minimal subsegmental atelectasis in both bases. There is mild left-sided hydronephrosis and hydroureter secondary to a 3 mm stone in the left UVJ. The right kidney is normal. The remainder of the solid organs, gallbladder, vascular structures and small bowel are normal. There is diverticulosis of the sigmoid colon without diverticulitis. The urinary bladder is unremarkable. Osseous structures are age appropriate. IMPRESSION: 1. Mild left-sided hydronephrosis and hydroureter secondary to an obstructive 3 mm stone in the left UVJ. 2. Diverticulosis of the sigmoid colon without diverticulitis. 3. Subsegmental atelectasis in both lung bases. Dictated by: Dictated on workstation # [id number]
== END 2018-07-20 04:25 | disposition home or self-care (01) ==
LOC: EDUNIT# 01:24 → ER 01:27
DX: N13.2 Hydronephrosis with renal and ureteral calculous obstruction (principal); R10.32 Left lower quadrant pain; Z87.19 Personal history of other diseases of the digestive system
CPT/HCPCS: 36415; 74177; 80053; 81000; 85025; 86141; 96361; 96374; 96375